=== PATIENT | female | born 1955 ===

== ENCOUNTER 2016-10-02 07:22 | Day surgery (SDC) | payer OTHER ==
[2016-10-02 07:40] VITALS: BMI 26.4
[2016-10-02 07:47] VITALS: TEMP 97
[2016-10-02] MEDS ORDERED: Propofol 10 mg/ml Inj (20 ML) ONE ×4 (09:24→10:46)
[2016-10-02] MEDS ORDERED: Simethicone 40 mg/0.6 ml Liquid (30 ml) ONE (09:56)
[2016-10-02 12:38] VITALS: RESP 20
[2016-10-02 12:49] VITALS: BP 125/70; PULSE 68; O2SAT 99
== END 2016-10-02 12:30 | disposition home or self-care (01) ==
LOC: C.ENDO 07:22
PROVIDERS: ATTEND Internal Medicine
DX: Z12.11 Encounter for screening for malignant neoplasm of colon (principal); D12.2 Benign neoplasm of ascending colon; D12.3 Benign neoplasm of transverse colon; D12.5 Benign neoplasm of sigmoid colon; K64.8 Other hemorrhoids; E11.9 Type 2 diabetes mellitus without complications
CPT/HCPCS: 45380; 45381; 45385; 82948; 88305; J2704

== ENCOUNTER 2017-06-04 06:44 | Day surgery (SDC) | payer OTHER ==
[2017-06-04] MEDS ORDERED: Simethicone 40 mg/0.6 ml Liquid (30 ml) ONE ×3 (07:12→08:30)
[2017-06-04] MEDS ORDERED: Propofol 10 mg/ml Inj (20 ML) ONE ×3 (08:08→09:01)
[2017-06-04] MEDS ORDERED: Lidocaine Hydrochloride 5 ML INJ ONE (08:36)
[2017-06-04 09:23] VITALS: TEMP 97.1; O2SAT 100
[2017-06-04 10:46] VITALS: BP 137/77; PULSE 67; RESP 16
== END 2017-06-04 10:44 | disposition home or self-care (01) ==
LOC: C.ENDO 06:44
PROVIDERS: ATTEND Internal Medicine
DX: D12.2 Benign neoplasm of ascending colon (principal); Z86.010 Personal history of colon polyps; D12.3 Benign neoplasm of transverse colon; D12.5 Benign neoplasm of sigmoid colon; E03.9 Hypothyroidism, unspecified; E11.9 Type 2 diabetes mellitus without complications; I10 Essential (primary) hypertension; E78.00 Pure hypercholesterolemia, unspecified; Z82.49 Family history of ischemic heart disease and other diseases of the circulatory system; Z83.3 Family history of diabetes mellitus; Z79.84 Long term (current) use of oral hypoglycemic drugs; K64.8 Other hemorrhoids
CPT/HCPCS: 45380; 45385; 82948; 88305; J2704

== ENCOUNTER → 2018-04-30 | Outpatient (CLI) | payer OTHER | LOC: C.MAMMO 08:33 | DX: Z12.31 Encounter for screening mammogram for malignant neoplasm of breast (principal) ==

== ENCOUNTER 2018-05-27 07:43 | Day surgery (SDC) | payer OTHER ==
[2018-05-27 08:02] VITALS: BMI 28.1
[2018-05-27] MEDS ORDERED: Lactated Ringer's 500 ML IV SCH (08:45)
[2018-05-27] MEDS ORDERED: Propofol 10 mg/ml Inj (20 ML) ONE (09:09)
--- NOTE | 2018-05-27 09:44 | CP.SDSHP ---
Same Day Surgery H & P - History Proposed Procedure: colonoscopy - Previous Medical/Surgical History Cardiac: Hypertension Endocrine/Metabolic: Diabetes - Allergies Allergies: Allergies No Known Allergies Allergy (Verified 10/02/16 07:37) - Physical Exam Vital Signs: Vital Signs 05/27/18 08:02 Temperature 97.8 F Pulse Rate 80 Respiratory 20 Rate Blood Pressure 138/77 O2 Sat by Pulse 98 Oximetry - Date & Time Date: 05/27/18 Time: 09:44 Short Stay Discharge - Short Stay Discharge Admitting Diagnosis/Reason for Visit: HISTORY OF COLONIC POLYPS Disposition: HOME/ ROUTINE
[2018-05-27 11:15] VITALS: TEMP 98.2; O2SAT 100
[2018-05-27 11:19] VITALS: RESP 20
[2018-05-27 11:27] VITALS: BP 145/80; PULSE 90
== END 2018-05-27 11:30 | disposition home or self-care (01) ==
LOC: C.ENDO 07:43
PROVIDERS: ATTEND Colon & Rectal Surgery
DX: Z08 Encounter for follow-up examination after completed treatment for malignant neoplasm (principal); Z86.010 Personal history of colon polyps; D12.4 Benign neoplasm of descending colon; D12.7 Benign neoplasm of rectosigmoid junction; K64.8 Other hemorrhoids
CPT/HCPCS: 45380; 82948; 88305; J2001; J2704; J7120